=== PATIENT | male | born 1960 | race Caucasian/White ===

== ENCOUNTER 2019-12-09 12:49 | Emergency (ER) | payer MEDICARE, MEDICAID, SELFPAY ==
--- NOTE | 2019-12-09 13:02 | ED.FALL ---
HPI - Fall General Chief Complaint: Head Injury Stated Complaint: [facility] FA[facility] FROM SNF Time Seen by Provider: 12/09/19 13:01 Source: EMS Mode of arrival: EMS Limitations: other ( CVA/TBI) History of Present Illness HPI Narrative: this is a pleasant 59-year-old male presenting from [facility] where he has a long-term resident with history of cerebrovascular accident with right-sided hemiparesis, hypertension, traumatic brain injury status post craniotomy, seizure disorder, alcohol abuse in the past he presents via EMS with complaint of fall. Per EMS and nursing staff at the facility (SHIVANI Braden whom I spoke to on the phone upon arrival ) patient was walking in the hallway with his cane tripped over his feet this was witnessed fell forward his head on the ground. There was no LOC. No prodromal symptoms. Has history of falls and gait instability secondary to the above history. Patient history somewhat limited but states only pain on the right side of the head where he has a hematoma otherwise denies any pain or discomfort. Otherwise he has been at his usual health In taking his medications. MD complaint: fall Onset (ago): minute(s) Fall from: other ( Walking in the hallway at the residential) Fall witnessed: yes, by living facility staff Place fall occurred: residential/SNF Loss of consciousness: none Prolonged down time: no Symptoms prior to fall: none Context: tripped/slipped Location of injury: head Related Data Allergies Allergy/AdvReac Type Severity Reaction Status Date / Time No Known Allergies Allergy Unverified 11/12/19 19:15 [No Known Allergies*] Review of Systems Review of Systems: Constitutional: No Weight loss, No Fever, No Chills, No Night Sweats, No Fatigue, No Malaise ENT/Mouth: No Hearing loss, No Ear Pain, No Nasal Congestion, No Sinus Pain, No Hoarseness, No sore throat, No Rhinorrhea, No Swallowing Difficulty Eyes: No Eye Pain, No Swelling, No Redness, No Foreign Body, No Discharge, No Vision Changes Cardiovascular: No Chest Pain, No SOB, No Dyspnea on Exertion, No Orthopnea, No Edema, No Palpitations Respiratory: No Cough, No Sputum, No Wheezing, No Smoke Exposure, No Dyspnea Gastrointestinal: No Nausea, No Vomiting, No Diarrhea, No Constipation, No abdominal Pain, No Hematochezia, No Melena Genitourinary: no irregular bleeding, No Dysuria, No Urinary Frequency, No Hematuria, No Urinary Incontinence, No Urgency, No Flank Pain, No Urinary Flow Changes, No Hesitancy Musculoskeletal: No joint pain, No Myalgias, No Joint Swelling Skin: No Skin Lesions, No rash Neuro: No Weakness, No Numbness, No Paresthesias, No Loss of Consciousness, No Dizziness, No Headache Psych: No Anxiety/Panic, No Depression, No SI/HI/AH/VH, No Social Issues, Heme/Lymph: No Bruising, No Bleeding,No Lymphadenopathy Endocrine: No Polyuria, No Polydipsia, No Temperature Intolerance [facility] Past Medical History Attestation statement: The following information was validated with the patient. Medical History (Updated 12/09/19 @ 14:28 by Tam Ku NP) Alcohol abuse CVA (cerebral vascular accident) Hemiparesis affecting right side as late effect of cerebrovascular accident Hypertension Seizures TBI (traumatic brain injury) Surgical History (Updated 12/09/19 @ 13:34 by Tam Ku NP) History of craniotomy Social History Social History Alcohol intake: unknown Smoking Status: Unknown if ever smoked Advance Directives: No Advance Directives Information Provided: No Physical Exam Vital Signs: Vital Signs: Vital Signs Temp Pulse Resp BP Pulse Ox 12/09/19 15:05 97.8 F 66 16 110/64 94 12/09/19 14:23 68 16 112/68 93 12/09/19 13:10 98.4 F 70 18 125/63 98 Body Mass Index 73.0 reviewed Const: General: cooperative and healthy appearing; No acute distress or intoxicated appearing Nutritional Appearance: average body habitus Orientation/consciousness: patient oriented x3 HENMT: Head: Yes normal to inspection Head images: 1. slightly raised hematoma with small abrasion on top. No open wound. No laceration. Mild tender palpation over site. Ears: hearing grossly normal bilaterally Eyes: General: appearance normal, both eyes and all related structures Visual Amezquita: normal visual amezquita by confrontation Neck: Neck: Yes normal visual inspection, No positive Brudzinski's sign, No positive Kernig's sign and No tender Thyroid: Thyroid normal Chest: Chest palpation & inspection: normal inspection of the chest Resp: Effort & Inspection: normal respiratory effort Cardio: Jugular venous distension: no JVD GI: Inspection: Yes normal to inspection Percussion: Yes normal to percussion Auscultation: normal bowel sounds : General: Yes no CVA tenderness Back/Spine/Pelvis: Back: no CVA tenderness Skin: General skin exam: no rashes or lesions noted Neuro: General: patient oriented x3 Extrem: Other: Moving all extremities without pain. Able to bend at the knee and flex without pain. No hip pain. No lower extremity or upper extremity pain. No back pain. Sitting up by himself General: Yes normal to inspection Course Course Course Narrative: Resting comfortably without complaints. He did get up to use the bathroom. No complaints of pain or discomfort. CT of the head without acute findings. Will discharge back to [facility]. MDM - Fall Differential Diagnosis Differential diagnosis: Likely fracture ( contusion, abrasion, hematoma, subarachnoid bleed, scalp fracture) and concussion without loss of consciousness Imaging Data CT scan - head: Radiologist's impression: [place] [id number] CT Scan Report Signed Patient: Oseas Oconnell#: [id number] : 1960Acct:[id number] Age/Sex: 59 / MADM Date: 12/09/19 Loc: HO.ED Attending Dr: Ordering Physician: Tam Ku NP Date of Service: 12/09/19 Procedure(s): CT head/brain wo con Accession Number(s): [id number] cc: Tam Ku NP~ EXAMINATION: CT HEAD WITHOUT CONTRAST CLINICAL INFORMATION: Status post fall COMPARISON: CT head 11/14/2016, 20 04/16/2016, 06/17/2016 TECHNIQUE: Contiguous axial imaging was performed from the skull base to vertex without intravenous administration of contrast. This CT examination was performed using dose optimization techniques as appropriate, variously including the following: *Automated exposure control *Adjustment of mA and/or kV according to patient size (this includes techniques or standardized protocols for targeted exams where dose is matched to indication/reason for exam; i.e. extremities or head) *Use of iterative reconstruction technique DLP: 860 mGy-cm FINDINGS: Postsurgical changes of left-sided hemicraniectomy and subsequent cranioplasty are again noted similar to previous studies. There is no evidence of acute intracranial hemorrhage, midline shift or mass effect. Stable findings of large areas of cystic encephalomalacia in the left cerebral hemisphere with significant ex vacuo dilatation of the left lateral ventricle. Note is again made of from encephalomalacia in the right cerebellum. Periventricular changes of gliosis in the bilateral frontal lobes are again noted. Presumably the findings are related to prior traumatic brain injury. No evidence of acute territorial infarction. No evidence of extra-axial hemorrhage. Small subgaleal hematoma is noted in the right superior periorbital region extending into the right anterolateral frontal region. No evidence of acute osseous abnormality. The paranasal sinuses and mastoid air cells are well-aerated. The globes are intact. No evidence of from retrobulbar hematoma or fat stranding. IMPRESSION: 1. No evidence of acute intracranial hemorrhage. No acute osseous abnormality. Postsurgical changes in the left hemicranium as detailed above are stable since previous studies. 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 2. Small subgaleal hematoma in the right superior periorbital region extending over the right anterolateral frontal region. Dictated By:MARYELLEN GONZALEZ MD Signed By:<Electronically signed by MARYELLEN GONZALEZ MD in OV>12/09/19 1350 DD/ 1301 TD/TT: Amusement Equipment Operator: AP Discharge Plan Discharge Clinical Impression: Contusion of scalp Qualifiers: Encounter type: initial encounter Qualified Code(s): S00.03XA - Contusion of scalp, initial encounter Fall Qualifiers: Encounter type: initial encounter Qualified Code(s): W19.XXXA - Unspecified fall, initial encounter Patient Disposition: er [facility] Instructions: Fall Prevention for Older Adults (ED), Scalp Contusion in Adults (ED) Interventions: ED Discharge Assessment Last Done: 12/09/19 16:15 Discharge Date/Time: 12/09/19 16:00
[2019-12-09 13:10] VITALS: BP 118/76; BP 125/63; PULSE 68; PULSE 70; RESP 18; TEMP 36.9; O2SAT 98; BMI 73.0
[2019-12-09 14:23] VITALS: BP 112/68; PULSE 68; RESP 16; O2SAT 93
[2019-12-09 15:05] VITALS: BP 110/64; PULSE 66; RESP 16; TEMP 36.6; O2SAT 94
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
== END 2019-12-09 16:00 | disposition skilled nursing facility (03) ==
PROVIDERS: Emergency Provider Emergency Medicine; PCP Hospitalist
DX: S00.03XA Contusion of scalp, initial encounter (principal); G44.309 Post-traumatic headache, unspecified, not intractable; W01.0XXA Fall on same level from slipping, tripping and stumbling without subsequent striking against object, initial encounter; Y93.01 Activity, walking, marching and hiking; Y92.9 Unspecified place or not applicable; Z79.899 Other long term (current) drug therapy
CPT/HCPCS: 70450; 99284

== ENCOUNTER 2021-01-30 22:24 | Emergency (ER) | payer MEDICARE, MEDICAID, SELFPAY ==
[2021-01-30 22:50] VITALS: BP 114/54; PULSE 70; RESP 16; TEMP 36.5; O2SAT 95; BMI 32.1
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
--- NOTE | 2021-01-31 00:27 | PC.NURSE ---
@ 00:22 CALL PLACED TO [facility] FOR BLS TRANSPORT BACK TO [facility], [place] [address] ANCA ANSWERS, TAKES PT INFO AND STATES IT WILL BE AWHILE, THEY ONLY HAVE ONE TRUCK FOR TRANSPORTS.
[2021-01-31 02:08] VITALS: BP 006/31; PULSE 73; O2SAT 96
--- NOTE | 2021-01-31 02:15 | PC.NURSE ---
nurse to nurse report called into Yajaira johsnon at [facility].
== END 2021-01-31 02:08 | disposition home or self-care (01) ==
LOC: HO.ED 23:14
PROVIDERS: Emergency Provider Emergency Medicine Emergency Medical Services; PCP Hospitalist
DX: Z04.1 Encounter for examination and observation following transport accident (principal); Z87.820 Personal history of traumatic brain injury; I10 Essential (primary) hypertension
CPT/HCPCS: 99284; 99285

== ENCOUNTER 2021-09-18 11:41 | Outpatient (REF) | payer MEDICARE, MEDICAID, SELFPAY ==
--- NOTE | ~2021-09-18 | XR_ITS ---
EXAMINATION: XR BILATERAL HIPS WITH AP PELVIS CLINICAL INFORMATION: Fall, trauma, pain COMPARISON: None TECHNIQUE: Each hip is imaged in AP and frog-lateral projections. There are 2 views on each side. FINDINGS: Right: No fracture or dislocation. There is mild superior lateral hip joint narrowing with some borderline spurring base femoral head. No erosive change or visible chondrocalcinosis. Soft tissue planes are unremarkable. Visualized right SI joint and pubis are unremarkable. Left: No fracture or dislocation. Mild superior lateral hip joint narrowing. No visible erosive change or chondrocalcinosis. Soft tissue planes grossly unremarkable. Visualized left SI joint and pubis are unremarkable. XR/XR hips MELITON min 3V IMPRESSION: -No fracture or dislocation. -Mild bilateral hip osteoarthritis, slightly greater on right.
== END 2021-09-18 11:42 | disposition home or self-care (01) ==
LOC: HO.XRAY 11:41
PROVIDERS: PCP Hospitalist; Visit Provider Hospitalist
DX: M25.551 Pain in right hip (principal); M25.552 Pain in left hip
CPT/HCPCS: 73522

== ENCOUNTER 2022-12-14 22:37 | Emergency (ER) | payer MEDICARE, MEDICAID, SELFPAY ==
--- NOTE | ~2022-12-14 | CT_ITS ---
EXAMINATION: CT HEAD WITHOUT CONTRAST CLINICAL INFORMATION COMPARISON: 12/09/2019. T ECHNIQUE: Contiguous axial imaging was performed from the skull base to vertex without intravenous administration of contrast. This CT examination was performed using dose optimization techniques as appropriate, variously including the following: *Automated exposure control *Adjustment of mA and/or kV according to patient size (this includes techniques or standardized protocols for targeted exams where dose is matched to indication/reason for exam; i.e. extremities or head) *Use of iterative reconstruction technique DLP: 776 mGy-cm FINDINGS: There is again seen areas of encephalomalacia within the left frontal, medial right frontal as well as temporal and occipital lobes on the left with ex vacuo dilatation of the left lateral ventricle. There is an old right cerebellar infarct. There is appears to be generalized cerebral volume loss with prominence of the right lateral and third ventricles. The cortical sulci are widened appropriately. There is no acute territorial defect, hemorrhage or midline shift. The extra-axial spaces are grossly unremarkable. Calvarium: There is been a prior left frontoparietal/temporal craniectomy. Maxillofacial sinuses and mastoids: Clear as visualized CT/CT head/brain wo IV con IMPRESSION: No acute intracranial abnormality. No significant change.
[2022-12-14 23:04] VITALS: BP 112/52; PULSE 66; RESP 17; TEMP 36.4; O2SAT 95
[2022-12-14 23:05] VITALS: BP 110/72; PULSE 62; RESP 18; O2SAT 96; BMI 29.2
--- NOTE | 2022-12-14 23:27 | ED.FALL ---
HPI - Fall General Chief Complaint: Fall Stated Complaint: FALL W/HS, NO LOC, -THINNERS, HAS TBI PER EMS Time Seen by Provider: 12/14/22 23:27 Source: patient and EMS Mode of arrival: EMS Limitations: no limitations History of Present Illness HPI Narrative: Patient [facility] of [facility] from [facility] limited history apparently of fell down hitting his right side of the forehead no loss of consciousness not on any blood thinners no other injury Related Data Allergies Allergy/AdvReac Type Severity Reaction Status Date / Time No Known Allergies Allergy Unverified 11/12/19 19:15 [No Known Allergies*] Review of Systems Review of Systems: Yes unobtainable due to endotracheal tube PMFSH Past Medical History Medical History Seizures TBI (traumatic brain injury) Alcohol abuse Hypertension Hemiparesis affecting right side as late effect of cerebrovascular accident CVA (cerebral vascular accident) Surgical History History of craniotomy Social History Social History Alcohol intake: unknown Advance Directives: No Advance Directives Information Provided: Yes Physical Exam Vital Signs: Vital Signs: Last Vital Signs Temp 98.0 F 12/15/22 00:43 Pulse 68 12/15/22 00:43 Resp 17 12/15/22 00:43 BP 116/61 12/15/22 00:43 Pulse Ox 94 12/15/22 00:43 O2 Del Method Nasal Cannula 12/15/22 00:43 O2 Flow Rate 4 12/15/22 00:43 BMI result Body Mass Index 29.2 Appearance: Alert. Oriented X2. No acute distress. Eyes: PERRLA, No Nystagmus ENT: Pharynx normal. Oral Mucosa moist celebration ,abrasion to right forehead Neck: Normal inspection. Neck supple. CVS: Normal heart rate and rhythm. Pulses normal. Respiratory: No respiratory distress. Equal air entry bilateral, no wheezing/rales/rhonchi Abdomen: Soft and nontender. Bowel sounds are present, no mass palpable, no CVA tenderness Skin: Skin warm and dry. Normal skin color. Normal skin turgor. Extremities: No lower extremity edema. No calf tenderness hips are stable no lumbar spine tenderness Neuro: Oriented X 2. Limited right-sided movement. No sensory deficit.No cerebellar signs , cranial nerves II-XII intact Medical Decision Making Medical Decision Making [facility] Narrative: Patient status post mechanical fall will do the CT scan of the head at this time patient is asymptomatic Differential Diagnosis Differential Diagnoses: The differential diagnosis associated with the presentation includes Mechanical fall/concussion/subdural bleed/intracranial bleed Radiology Impression Discussion of test interpretation with radiology: I have reviewed the radiologist's reading. Radiologist Impression: Ordering Physician: Joaquin Be MD Date of Service: 12/14/22 Procedure(s): CT head/brain wo IV con Accession Number(s): [id number] cc: Physician,Unknown ; Joaquin Be MD~ EXAMINATION: CT HEAD WITHOUT CONTRAST CLINICAL INFORMATION COMPARISON: 12/09/2019. T ECHNIQUE: Contiguous axial imaging was performed from the skull base to vertex without intravenous administration of contrast. This CT examination was performed using dose optimization techniques as appropriate, variously including the following: *Automated exposure control *Adjustment of mA and/or kV according to patient size (this includes techniques or standardized protocols for targeted exams where dose is matched to indication/reason for exam; i.e. extremities or head) *Use of iterative reconstruction technique DLP: 776 mGy-cm FINDINGS: There is again seen areas of encephalomalacia within the left frontal, medial right frontal as well as temporal and occipital lobes on the left with ex vacuo dilatation of the left lateral ventricle. There is an old right cerebellar infarct. There is appears to be generalized cerebral volume loss with prominence of the right lateral and third ventricles. The cortical sulci are widened appropriately. There is no acute territorial defect, hemorrhage or midline shift. The extra-axial spaces are grossly unremarkable. Calvarium: There is been a prior left frontoparietal/temporal craniectomy. Maxillofacial sinuses and mastoids: Clear as visualized CT/CT head/brain wo IV con IMPRESSION: No acute intracranial abnormality. No significant change. Discharge Plan Discharge Clinical Impression: Minor closed head injury Patient Disposition: [facility] Transfer Details: Patient's CT scan of the head is negative for acute vitals are stable [facility]
[2022-12-15 00:43] VITALS: BP 116/61; PULSE 68; RESP 17; TEMP 36.7; O2SAT 94
[2022-12-15 03:48] VITALS: BP 108/53; PULSE 78; RESP 18; O2SAT 93
[2022-12-15 07:50] VITALS: BP 124/69; PULSE 80; RESP 20; O2SAT 94
== END 2022-12-15 07:55 ==
PROVIDERS: Emergency Provider Internal Medicine; PCP Hospitalist
DX: S09.90XA Unspecified injury of head, initial encounter (principal); R51.9 Headache, unspecified; X58.XXXA Exposure to other specified factors, initial encounter; Y93.9 Activity, unspecified; Y92.9 Unspecified place or not applicable; Y99.9 Unspecified external cause status
CPT/HCPCS: 70450; 99284